=== PATIENT | female | born 1990 | race Two or more races ===

== ENCOUNTER 2023-01-22 10:21 | Emergency (ER) | payer MEDICAID ==
[~2023-01-22] VITALS: Ht 165.1 cm; Wt 61.2 kg
--- NOTE | 2023-01-22 10:35 | NUR ---
C/O ANXIETY, DEPRESSION, AND INSOMNIA FOR 7 DAYS. PT DENIES SI OR HI.
--- NOTE | 2023-01-22 10:45 | NUR ---
AT BEDSIDE FOR EVAL
[2023-01-22] MEDS ORDERED: LORA-259 PO (10:51)
--- NOTE | 2023-01-22 11:01 | NUR ---
Patient discharged to home in stable condition. Written and verbal after care instructions given. Patient verbalizes understanding of instruction.
[2023-01-22 11:02] VITALS: BP 113/61
== END 2023-01-22 11:03 | disposition home or self-care (01) ==
LOC: ER 10:24
DX: F41.9 Anxiety disorder, unspecified (principal); Z60.2 Problems related to living alone; Z79.899 Other long term (current) drug therapy